=== PATIENT | male | born 1965 | race Caucasian/White ===

== ENCOUNTER 2016-06-10 07:13 | Day surgery (SDC) | payer OTHER ==
[~2016-06-10] VITALS: Ht 188 cm; Wt 111.9 kg
[~2016-06-10 07:13] MED LIST: CITA10TA7 PO; LIDOCAINE 1% (10mg/ml) 2ml SDV INJ ONE; LR 1,000 ML IV SCH; OMEP-122 PO
[2016-06-10 07:23] VITALS: Ht 188 cm; Wt 111.9 kg
[2016-06-10 07:40] VITALS: BP 140/83; PULSE 60; RESP 16; TEMP 98.4; O2SAT 96
[2016-06-10] MEDS ORDERED: CEFAZOLIN 1 GRAM INJECTION IV ONE (08:00)
[2016-06-10] MEDS ORDERED: LIDOCAINE 1%/EPI 1:100,000 20ml MDV ONE (08:31)
[2016-06-10] MEDS ORDERED: MIDAZOLAM 5mg/5ml INJECTION IV PRN (09:00)
--- NOTE | 2016-06-10 09:16 | ANESPREOP ---
Anesthesia Record Date and Time DATE: 06/10/16 TIME: 09:14 Pre-Op Diagnosis melanoma Right Forearm Proposed Surgical Procedure EXC. OF MELANOMA ON RT DORSOLATERAL FOREARM WITH POSSIBLE Allergies: Coded Allergies: No Known Allergies (Unverified , 06/10/16) Ht/Wt/BMI Height: 6 ' 2.00 " Weight: 111.900 kg BMI: 31.7 kg/m2 Vital Signs Date Time Temp Pulse Resp B/P Pulse Ox O2 Delivery O2 Flow Rate FiO2 06/10/16 07:40 98.4 60 16 140/83 96 Room Air Medications Inpatient Medications Current Medications Medications (Trade) Dose Ordered Sig/Jennifer Start Time Stop Time Status Last Admin Dose Admin Lactated Ringer's (Lactated Ringers) 1,000 ml @ 50 mls/hr Q20H 06/10/16 07:00 06/10/16 08:06 50 MLS/HR Midazolam HCl (Versed) 0.5-3 MG Q10M PRN 06/10/16 09:00 Fentanyl (Fentanyl) 25-50MCG IV PUSH PRN NOT... PRN PRN 06/12/16 09:00 Citalopram Hydrobromide (Citalopram HBr) 10 Mg Tablet, 1 TAB PO HS, (Reported) Last Taken: on 06/09/16 2200 Omeprazole (Omeprazole) 20 Mg Tablet.dr, 20 MG PO ACB, (Reported) Take 1 tablet, by mouth, one time a day with breakfast. Last Taken: on 06/09/16 0500 Currently on Beta Chris: No Medical/Surgical History Anesthesia PMH: Reports: Cancer (SKIN CANCER), Reflux, Denies: Anesthesia Reactions (NO AIRWAY ISSUES, N&V), Arthritis, Clotting Problems, Glaucoma, Malignant Hyperthermia, Renal Disease, Sleep Apnea Smoking Status: Never smoker Use Chewing Tobacco?: No Second Hand Exposure: No Substance Use Type: does not use Alcohol Intake: a few times a week Past Surgical History Orthopedic Surgeries: Abdominal Surgeries: Yes - GALLBLADDER, HERNIA REPAIR Genitourinary Surgeries: Cardiac Surgeries: Endocrine Surgeries: Reproductive Surgeries: Neurological Surgeries: Ear Surgeries: Nose Surgeries: Throat Surgeries: Other Surgeries: Yes - WISDOM TEETH Anesthesia Adverse Reactions: FOUND none Pertinent Findings EKG Rhythm: Sinus Rhythm Physical Exam Respiratory: Bilat breath sounds equal, Lungs clear Cardiovascular: FOUND Regular rate, rhythm, FOUND No murmur Airway Assessment Mallampati Score: II TMD: 3 Fingerbreadths Neck Extension: Good Overall Assessment: No Airway Concerns ASA: 2 Plan Anesthesia Plan: MAC Discussion Discussed risks/options/alternatives of anesthesia and questions answered. Patient consents. Nursing pain assessment noted. Present: Spouse Attestation Statement Prior to the delivery of any anesthetic medication, I examined the patient, developed the plan, obtained the patient's consent and discussed the risk and benefits of the procedure with the patient/guardian. ASHLEY NARAYAN CRNA June 10, 2016 09:16
[2016-06-10] MEDS ORDERED: FENTANYL 100mcg/2ml INJECTION ONE (09:37)
[2016-06-10] MEDS ORDERED: MIDAZOLAM 5mg/5ml INJECTION ONE (09:37)
--- NOTE | 2016-06-10 10:12 | PDPROCED ---
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
[2016-06-10 10:24] VITALS: BP 120/80; PULSE 82; RESP 16; TEMP 97.2; O2SAT 96
[2016-06-10] MEDS ORDERED: ATROPINE 1mg/10ml Syringe IV PRN (10:30)
[2016-06-10] MEDS ORDERED: ONDANSETRON 4mg/2ml INJECTION IV PRN (10:30)
[2016-06-10] MEDS ORDERED: HYDROCODONE/APAP 5 mg/325 mg TABLET PO PRN (10:30)
[2016-06-10] MEDS ORDERED: CEPH-583 PO (10:34)
[2016-06-10] MEDS ORDERED: ACET1TAB12 PO (10:34)
[2016-06-10 10:40] VITALS: BP 138/83; PULSE 84; RESP 18; O2SAT 96
[2016-06-10 10:54] VITALS: BP 122/72; PULSE 64; RESP 18; O2SAT 94
--- NOTE | 2016-06-10 11:16 | ANESPO ---
Post-Op Note Date 06/10/16 Time: 11:16 Status Pt Participated in Evaluation: Pt participated in person Vital Signs Date Time Temp Pulse Resp B/P Pulse Ox O2 Delivery O2 Flow Rate FiO2 06/10/16 10:54 64 18 122/72 94 Room Air 06/10/16 10:24 97.2 Respiratory Function: Airway patent, Regular respirations Telemetry Pattern: SR Mental Status: Alert/oriented Pain Level Intensity: 0 Hydration: Taking po fluids Complications during Recovery None apparent Follow-Up Instructions Instructions Per Surgeon ASHLEY NARAYAN CRNA June 10, 2016 11:16
--- NOTE | 2016-06-10 16:13 | OPNOTEF ---
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 OPERATION Wide excision of malignant melanoma in situ right dorsal forearm with complex closure: Lesion size was 1.3 cm, excision was 2.6 cm, final defect was 6.6 cm. SURGEON Dorothy Valdez M.D. ANESTHESIA MAC INDICATIONS The patient is a 51-year-old man who was referred by Dr. Rios for evaluation and management of a pigmented lesion of his right dorsal forearm. The patient stated that the lesion had been present since childhood but had recently changed in appearance. Over the past two years, he had noticed it growing larger and becoming more irregular in color. The patient had not experienced any bleeding or peeling at the site. A punch biopsy was performed which confirmed a malignant melanoma in situ extending to the peripheral margins. On exam, he had a 1.3 cm irregularly pigmented dark brown lesion with regression and a healing biopsy site. In detailed discussion with the patient preoperatively, the risks, benefits and alternatives of excision of the lesion and closure were reviewed including, but not limited to, bleeding, infection, poor or keloid scarring, possible residual or recurrent disease, delayed healing, possible partial or complete loss of the flap or graft. The patient understood and wished to proceed. We also discussed that should the wound need a graft or a significant flap closure, we would leave the wound open pending the final pathology. The patient understood and wished to proceed. DESCRIPTION OF PROCEDURE The patient was marked preoperatively and then brought to the operating room where, after suitable IV sedation had been obtained, the right arm was prepped and draped in the usual sterile manner. The area was then infiltrated with 1% lidocaine with epinephrine. The lesion was excised down to the level of the fascia and handed off as a specimen with a tag at the 12 o'clock medial position. Hemostasis throughout was obtained using the electrocautery. The wound was then undermined and dog ears were removed. It was then closed in two layers using interrupted buried sutures of 3-0 Monocryl, running subcuticular suture of Monocryl and a running 5-0 nylon. Benzoin and Steri-Strips were applied, as well as a dry sterile dressing, Kerlix and an Noah wrap. The patient was then brought to the recovery room in stable condition. Estimated blood loss was less than 10 mL. The case was clean. Specimens: Malignant melanoma in situ of the right dorsal forearm. Medical clearance was obtained from Dr. Rios. [facility]
[2016-06-12] MEDS ORDERED: FENTANYL 100mcg/2ml INJECTION IV PRN (09:00)
== END 2016-06-10 11:17 | disposition home or self-care (01) ==
LOC: NSC 07:13
PROVIDERS: ATTEND Surgery Plastic and Reconstructive Surgery
DX: D03.61 Melanoma in situ of right upper limb, including shoulder (principal)
CPT/HCPCS: 11603; 13121; J0690; J2250; J3010; J7120